=== PATIENT | female | born 1990 ===

== ENCOUNTER 2023-01-05 10:59 | Observation (INO) | payer MEDICAID ==
[~2023-01-05] VITALS: Ht 165.1 cm; Wt 103.4 kg
[2023-01-05 11:48] LABS: Fern Testing Negative
[2023-01-05] MEDS ORDERED: PREN1TAB71 OR (12:44)
== END 2023-01-05 15:11 | disposition home or self-care (01) ==
LOC: LDRP 10:59 → UNDOADMOB 10:59 → LDRP 11:02
PROVIDERS: ADMIT Obstetrics & Gynecology; ATTEND Obstetrics & Gynecology
DX: O24.419 Gestational diabetes mellitus in pregnancy, unspecified control (principal); O42.92 Full-term premature rupture of membranes, unspecified as to length of time between rupture and onset of labor; Z3A.31 31 weeks gestation of pregnancy
CPT/HCPCS: 59025; 76805; 76818; 81002; 82948; 82962; 84112; 94760; G0378; Q0114

== ENCOUNTER 2023-01-07 15:57 | Observation (INO) | payer MEDICAID ==
[~2023-01-07 15:57] MED LIST: PREN1TAB71 OR
== END 2023-01-07 17:54 | disposition home or self-care (01) ==
LOC: LDRP 15:57
PROVIDERS: ADMIT Obstetrics & Gynecology; ATTEND Obstetrics & Gynecology
DX: O41.03X0 Oligohydramnios, third trimester, not applicable or unspecified (principal); O24.419 Gestational diabetes mellitus in pregnancy, unspecified control; Z3A.31 31 weeks gestation of pregnancy
CPT/HCPCS: 59025; 76818; 81002; 82962; 94760; G0378

== ENCOUNTER 2023-01-13 08:58 | Observation (INO) | payer MEDICAID ==
[2023-01-13] MEDS ORDERED: METF-370 PO (12:29)
[2023-01-13] MEDS ORDERED: GLYB1.257 PO (12:30)
== END 2023-01-13 12:38 | disposition home or self-care (01) ==
LOC: UNDOADMOB 10:48 → LDRP 10:48 → UNDODISOB 12:38
PROVIDERS: ADMIT Obstetrics & Gynecology; ATTEND Obstetrics & Gynecology
DX: O24.415 Gestational diabetes mellitus in pregnancy, controlled by oral hypoglycemic drugs (principal); Z3A.32 32 weeks gestation of pregnancy; Z79.84 Long term (current) use of oral hypoglycemic drugs
CPT/HCPCS: 59025; 76818; 81002; 82948; 82962; G0378; 96361; 96374; 96375

== ENCOUNTER 2023-01-15 13:04 | Observation (INO) | payer MEDICAID ==
[~2023-01-15 13:04] MED LIST changes: +GLYB1.257 PO; +METF-370 PO
== END 2023-01-15 14:51 | disposition home or self-care (01) ==
LOC: LDRP 13:04
PROVIDERS: ADMIT Obstetrics & Gynecology; ATTEND Obstetrics & Gynecology
DX: O24.419 Gestational diabetes mellitus in pregnancy, unspecified control (principal); O36.8130 Decreased fetal movements, third trimester, not applicable or unspecified; Z3A.32 32 weeks gestation of pregnancy
CPT/HCPCS: 59025; 76818; 81002; 82948; 82962; 87086; 94760; G0378

== ENCOUNTER 2023-01-17 10:52 | Observation (INO) | payer MEDICAID ==
[2023-01-17 12:25] LABS: Fern Testing Negative
[2023-01-17] MEDS ORDERED: LACTATED RINGER'S 1,000 ML IV ONE (12:45)
== END 2023-01-17 15:19 | disposition home or self-care (01) ==
LOC: LDRP 10:52 → UNDOADMOB 10:52 → LDRP 11:14
PROVIDERS: ADMIT Obstetrics & Gynecology; ATTEND Obstetrics & Gynecology
DX: O24.419 Gestational diabetes mellitus in pregnancy, unspecified control (principal); O41.03X0 Oligohydramnios, third trimester, not applicable or unspecified; Z3A.32 32 weeks gestation of pregnancy
CPT/HCPCS: 59025; 76815; 76818; 81002; 82948; 82962; 84112; 96360; 96361; G0378; Q0114

== ENCOUNTER 2023-01-21 11:27 | Observation (INO) | payer MEDICAID ==
[2023-01-21] MEDS ORDERED: LACTATED RINGER'S 1,000 ML IV ONE ×2 (14:30→15:15)
== END 2023-01-21 17:40 | disposition home or self-care (01) ==
LOC: UNDOADMOB 11:27 → LDRP 11:27
PROVIDERS: ADMIT Obstetrics & Gynecology; ATTEND Obstetrics & Gynecology
DX: O24.419 Gestational diabetes mellitus in pregnancy, unspecified control (principal); O41.03X0 Oligohydramnios, third trimester, not applicable or unspecified; Z3A.33 33 weeks gestation of pregnancy
CPT/HCPCS: 59025; 76815; 76818; 81002; 82948; 82962; 94760; 96360; 96361; G0378

== ENCOUNTER 2023-01-23 10:12 | Observation (INO) | payer MEDICAID ==
[~2023-01-23] VITALS: Ht 165.1 cm; Wt 103.4 kg
[2023-01-23] MEDS ORDERED: LACTATED RINGER'S 1,000 ML IV ONE (12:15)
== END 2023-01-23 13:34 | disposition home or self-care (01) ==
LOC: LDRP 10:12
PROVIDERS: ADMIT Obstetrics & Gynecology; ATTEND Obstetrics & Gynecology
DX: O24.419 Gestational diabetes mellitus in pregnancy, unspecified control (principal); O41.03X0 Oligohydramnios, third trimester, not applicable or unspecified; Z3A.33 33 weeks gestation of pregnancy
CPT/HCPCS: 59025; 76818; 81002; 82948; 82962; 94760; G0378

== ENCOUNTER 2023-01-25 10:26 | Observation (INO) | payer MEDICAID | END 2023-01-25 12:46 | disposition home or self-care (01) | LOC: LDRP 11:04 → UNDOADMOB 11:04 → LDRP 11:11 | PROVIDERS: ADMIT Obstetrics & Gynecology; ATTEND Obstetrics & Gynecology | DX: O24.419 Gestational diabetes mellitus in pregnancy, unspecified control (principal); Z3A.33 33 weeks gestation of pregnancy | CPT/HCPCS: 59025; 76818; 81002; 82948; 82962; G0378 ==

== ENCOUNTER 2023-01-27 12:25 | Observation (INO) | payer MEDICAID ==
[~2023-01-27] VITALS: Ht 165.1 cm; Wt 103.4 kg
[2023-01-27] MEDS ORDERED: BETAMETHASONE ACET (30mg/5ml) 5ml Vial 6mg/ml IM ONE (13:15)
[2023-01-27] MEDS ORDERED: AMPICILLIN SOD 2GM INJ 2 GM in SODIUM CHL 0.9% 100 ML IV ONE (13:15)
[2023-01-27] MEDS ORDERED: LACTATED RINGER'S 1,000 ML IV SCH (14:00)
== END 2023-01-27 14:32 ==
LOC: UNDOADMOB 12:25 → LDRP 12:25
PROVIDERS: ADMIT Obstetrics & Gynecology; ATTEND Obstetrics & Gynecology
DX: O24.419 Gestational diabetes mellitus in pregnancy, unspecified control (principal); O41.03X0 Oligohydramnios, third trimester, not applicable or unspecified; Z3A.34 34 weeks gestation of pregnancy
CPT/HCPCS: 59025; 81002; 82948; 82962; 94760; 96361; 96365; 96372; G0378; J0290; J0702; 96360